=== PATIENT | female | born 1965 | race Two or more races ===

== ENCOUNTER 2017-07-05 11:38 | Day surgery (SDC) | payer OTHER ==
[2017-07-05] MEDS ORDERED: PROPOFOL 60 ML (13:38)
[2017-07-05] MEDS ORDERED: LIDOCAINE 100 MG SYRINGE (13:39)
== END 2017-07-05 16:55 | disposition home or self-care (01) ==
LOC: GIL 11:38
DX: Z12.11 Encounter for screening for malignant neoplasm of colon (principal); D12.6 Benign neoplasm of colon, unspecified
CPT/HCPCS: 45380; 88305